=== PATIENT | female | born 1960 | race Caucasian/White ===

== ENCOUNTER 2020-05-05 09:42 | Emergency (ER) | payer MEDICAID ==
[~2020-05-05] VITALS: Ht 170.2 cm; Wt 61.0 kg
[2020-05-05 10:18] LABS: BASOPHILS # (AUTO) 0.1 X10'3 (0-0.2); BASOPHILS % (AUTO) 0.7 % (0-1); EOSINOPHILS # (AUTO) 0.1 X10'3 (0-0.9); EOSINOPHILS % (AUTO) 1.2 % (0-6); HEMATOCRIT 39.3 % (35.0-45.0); HEMOGLOBIN 13.2 g/dl (12.0-16.0); LYMPHOCYTES # (AUTO) 1.8 X10'3 (1.1-4.8); LYMPHOCYTES % (AUTO) 20.1 % (21-51); MEAN CORPUSCULAR HEMOGLOBIN 34.5 PG (27.0-31.0); MEAN CORPUSCULAR HGB CONC 33.7 g/dL (33.0-36.5); MEAN CORPUSCULAR VOLUME 102.5 FL (78-98); MEAN PLATELET VOLUME 7.5 FL (7.4-10.4); MONOCYTES # (AUTO) 0.5 X10'3 (0-0.9); MONOCYTES % (AUTO) 6.2 % (2-12); NEUTROPHILS # (AUTO) 6.3 X10'3 (1.8-7.7); NEUTROPHILS % (AUTO) 71.8 % (42-75); PLATELET COUNT 430 X10'3 (140-440); RED BLOOD COUNT 3.83 X10'6 (4.20-5.60); RED CELL DISTRIBUTION WIDTH 13.7 % (11.5-14.5); WHITE BLOOD COUNT 8.7 X10'3 (4.5-11.0)
[2020-05-05 10:26] LABS: ALANINE AMINOTRANSFERASE 18 U/L (12-78); ALBUMIN 3.5 G/DL (3.4-5.0); ALKALINE PHOSPHATASE 66 IU/L (46-116); ANION GAP 9 (8-16); ASPARTATE AMINO TRANSFERASE 13 U/L (10-37); BILIRUBIN,TOTAL 0.2 MG/DL (0.1-1.0); BLOOD UREA NITROGEN 23 MG/DL (7-18); BUN/CREATININE RATIO 23.2 (6.6-38.0); CALCIUM 9.1 MG/DL (8.5-10.1); CHLORIDE 109 MMOL/L (99-107); CREATININE 0.99 MG/DL (0.40-0.90); GLUCOSE 108 MG/DL (70-104); LIPASE 415 U/L (73-393); POTASSIUM 5.1 MMOL/L (3.5-5.1); SODIUM 143 MMOL/L (135-145); TOTAL CARBON DIOXIDE 25.3 MMOL/L (24-32); eGFR 57 ML/MIN
[2020-05-05] MEDS ORDERED: folic acid 1mg/0.2ml inj IV ONE (10:45)
[2020-05-05] MEDS ORDERED: thiamine 100mg/ml 2ml inj. IV ONE (10:45)
[2020-05-05] MEDS ORDERED: normal saline 1000ML IV soln IVB ONE (10:45)
[2020-05-05] MEDS ORDERED: ondansetron/PF 4mg/2ml inj IV ONE (10:45)
[2020-05-05] MEDS ORDERED: famotidine/PF 10 mg/ml inj IV ONE (10:45)
[2020-05-05] MEDS ORDERED: ketorolac trometh. 30mg/ml inj. IV ONE (10:45)
[2020-05-05] MEDS ORDERED: iohexol 300mg/ml 100ml inj. ONE (10:56)
[2020-05-05] MEDS ORDERED: NAPR-56 PO (11:53)
[2020-05-05] MEDS ORDERED: TRAM50TA2 PO (11:53)
[2020-05-05] MEDS ORDERED: PANT-47 PO (11:53)
[2020-05-05] MEDS ORDERED: ONDA4TAB6 PO (11:53)
[2020-05-05 11:59] LABS: CLARITY,URINE SLIGHTLY CLOUDY (Clear); COLOR,URINE YELLOW (Yellow); GLUCOSE, URINE NEGATIVE (Neg); KETONES,URINE NEGATIVE (Neg); LEUKOCYTE ESTERASE ,URINE NEGATIVE (Neg); NITRITES, URINE NEGATIVE (Neg); OCCULT BLOOD,URINE NEGATIVE (Neg); PH,URINE 5.5 (4.8-8.0); PROTEIN,URINE NEGATIVE (Neg); UROBILINOGEN,URINE 0.2 E.U/dL (0.2-1.0)
[2020-05-05 12:00] LABS: UA COLLECTION TYPE VOIDED
[2020-05-05 12:05] LABS: HYALINE CASTS 0-3 /LPF (NEGATIVE); MUCUS STRANDS FEW /LPF (Neg); SQUAMOUS EPITHELIAL CELL,UR FEW /LPF (FEW)
[2020-05-05 12:06] LABS: BACTERIA,URINE FEW /HPF (Neg); RBC,URINE 0-2 /HPF (0-2); WBC,URINE 0-4 /HPF (0-4)
[2020-05-05 13:13] VITALS: BP 145/78
== END 2020-05-05 13:08 | disposition home or self-care (01) ==
LOC: ER 09:42
DX: K85.90 Acute pancreatitis without necrosis or infection, unspecified (principal); F10.20 Alcohol dependence, uncomplicated; Z88.0 Allergy status to penicillin; Z79.899 Other long term (current) drug therapy; Y90.0 Blood alcohol level of less than 20 mg/100 ml
CPT/HCPCS: 36415; 71045; 74177; 80053; 81001; 83690; 84484; 85025; 93005; 96374; 96375; 99285; J1885; J2405; J3411; J3490; J7030; Q9967

== ENCOUNTER 2022-05-15 13:07 | Emergency (ER) | payer MEDICAID ==
[~2022-05-15] VITALS: Ht 170.2 cm; Wt 66.4 kg
[~2022-05-15 13:07] MED LIST: ONDA4TAB6 PO; PANT-47 PO
[2022-05-15 13:44] LABS: BASOPHILS % (AUTO) 0.1 % (0-1); EOSINOPHILS % (AUTO) 0 % (0-6); HEMATOCRIT 43.8 % (35.0-45.0); LYMPHOCYTES # (AUTO) 0.7 X10'3 (1.1-4.8); LYMPHOCYTES % (AUTO) 5.4 % (21-51); MEAN CORPUSCULAR HEMOGLOBIN 34.1 PG (27.0-31.0); MEAN CORPUSCULAR HGB CONC 34.2 g/dL (33.0-36.5); MEAN CORPUSCULAR VOLUME 99.7 FL (78-98); MEAN PLATELET VOLUME 8.2 FL (7.4-10.4); MONOCYTES # (AUTO) 0.4 X10'3 (0-0.9); NEUTROPHILS # (AUTO) 11.5 X10'3 (1.8-7.7); NEUTROPHILS % (AUTO) 91.5 % (42-75); PLATELET COUNT 365 X10'3 (140-440); RED BLOOD COUNT 4.39 X10'6 (4.20-5.60); RED CELL DISTRIBUTION WIDTH 14.2 % (11.5-14.5); WHITE BLOOD COUNT 12.5 X10'3 (4.5-11.0)
[2022-05-15 14:10] LABS: ALANINE AMINOTRANSFERASE 38 U/L (12-78); ALBUMIN 3.5 G/DL (3.4-5.0); ALBUMIN/GLOBULIN RATIO 0.8 (1.1-1.5); ALKALINE PHOSPHATASE 79 IU/L (46-116); ANION GAP 15 (8-16); ASPARTATE AMINO TRANSFERASE 21 U/L (10-37); BILIRUBIN,TOTAL 0.8 MG/DL (0.1-1.0); BLOOD UREA NITROGEN 25 MG/DL (7-18); BUN/CREATININE RATIO 20.8 (6.6-38.0); CALCIUM 9.1 MG/DL (8.5-10.1); CHLORIDE 98 MMOL/L (99-107); GLUCOSE 127 MG/DL (70-104); LIPASE < 50 U/L (73-393); POTASSIUM 3.8 MMOL/L (3.5-5.1); SODIUM 136 MMOL/L (135-145); TOTAL CARBON DIOXIDE 23.1 MMOL/L (24-32); TOTAL PROTEIN 8.1 G/DL (6.4-8.2); eGFR 45 ML/MIN
[2022-05-15 16:20] VITALS: BP 112/74
[2022-05-15] MEDS ORDERED: loperamide 2mg capsule PO ONE (16:35)
[2022-05-15] MEDS ORDERED: VANC125C5 PO (18:00)
[2022-05-15] MEDS ORDERED: VANC125C11 PO (18:04)
[2022-05-15] MEDS ORDERED: vancomycin 125mg/5ml ORAL solution 5ml UD oral syringe PO ONE (18:10)
== END 2022-05-15 19:02 | disposition home or self-care (01) ==
LOC: ER 13:09
DX: A04.71 Enterocolitis due to Clostridium difficile, recurrent (principal); Z88.0 Allergy status to penicillin
CPT/HCPCS: 36415; 74176; 80053; 83690; 84145; 85025; 99284

== ENCOUNTER 2022-05-20 06:04 | Inpatient (IN) | payer MEDICAID ==
[~2022-05-20] VITALS: Ht 170.2 cm; Wt 66.4 kg
[~2022-05-20 06:04] MED LIST changes: +VANC125C11 PO; +VANC125C5 PO
[2022-05-20] MEDS ORDERED: morphine 4 MG/ML inj SYRINge IV PRN (07:30)
[2022-05-20] MEDS ORDERED: ondansetron/PF 4mg/2ml inj IV ONE (07:30)
[2022-05-20] MEDS ORDERED: ketorolac trometh. 30mg/ml inj. IV ONE (08:00)
[2022-05-20 08:39] LABS: CLARITY,URINE CLOUDY (Clear); COLOR,URINE YELLOW (Yellow); GLUCOSE, URINE NEGATIVE (Neg); KETONES,URINE 15 mg/dl (Neg); LEUKOCYTE ESTERASE ,URINE NEGATIVE (Neg); NITRITES, URINE NEGATIVE (Neg); OCCULT BLOOD,URINE NEGATIVE (Neg); PROTEIN,URINE NEGATIVE (Neg); UROBILINOGEN,URINE 0.2 E.U/dL (0.2-1.0)
[2022-05-20 08:41] LABS: UA COLLECTION TYPE NON-SPECIFIED
[2022-05-20 08:44] LABS: MEAN CORPUSCULAR VOLUME 100.3 FL (78-98); MONOCYTES # (AUTO) 1.3 X10'3 (0-0.9); WHITE BLOOD COUNT 10.4 X10'3 (4.5-11.0)
[2022-05-20 08:46] LABS: BASOPHILS % (AUTO) 0.2 % (0-1); EOSINOPHILS % (AUTO) 0.5 % (0-6); HEMATOCRIT 38.2 % (35.0-45.0); HEMOGLOBIN 13.1 g/dl (12.0-16.0); LYMPHOCYTES # (AUTO) 1.1 X10'3 (1.1-4.8); LYMPHOCYTES % (AUTO) 10.4 % (21-51); MEAN CORPUSCULAR HEMOGLOBIN 34.4 PG (27.0-31.0); MEAN CORPUSCULAR HGB CONC 34.3 g/dL (33.0-36.5); MEAN PLATELET VOLUME 7.1 FL (7.4-10.4); MONOCYTES % (AUTO) 12.1 % (2-12); NEUTROPHILS % (AUTO) 76.8 % (42-75); PLATELET COUNT 640 X10'3 (140-440); RED CELL DISTRIBUTION WIDTH 14.5 % (11.5-14.5)
[2022-05-20 08:46] LABS: HYALINE CASTS 0-3 /LPF (NEGATIVE); MUCUS STRANDS FEW /LPF (Neg); SQUAMOUS EPITHELIAL CELL,UR MANY /LPF (FEW)
[2022-05-20 08:48] LABS: BACTERIA,URINE 2+ /HPF (Neg); CAL OXALATE CRYSTALS FEW /HPF (NEGATIVE); RBC,URINE 0-2 /HPF (0-2); WBC,URINE 0-4 /HPF (0-4)
[2022-05-20 09:13] LABS: ALANINE AMINOTRANSFERASE 52 U/L (12-78); ALBUMIN 2.7 G/DL (3.4-5.0); ALBUMIN/GLOBULIN RATIO 0.5 (1.1-1.5); ALKALINE PHOSPHATASE 127 IU/L (46-116); ANION GAP 11 (8-16); ASPARTATE AMINO TRANSFERASE 29 U/L (10-37); BILIRUBIN,TOTAL 0.7 MG/DL (0.1-1.0); BLOOD UREA NITROGEN 31 MG/DL (7-18); BUN/CREATININE RATIO 29.8 (6.6-38.0); CALCIUM 9.4 MG/DL (8.5-10.1); CHLORIDE 101 MMOL/L (99-107); CREATININE 1.04 MG/DL (0.40-0.90); GLUCOSE 108 MG/DL (70-104); LIPASE 98 U/L (73-393); POTASSIUM 3.7 MMOL/L (3.5-5.1); SODIUM 137 MMOL/L (135-145); TOTAL CARBON DIOXIDE 25.1 MMOL/L (24-32); TOTAL PROTEIN 7.7 G/DL (6.4-8.2); eGFR 54 ML/MIN
--- NOTE | 2022-05-20 10:18 | NUR ---
General surg team at [facility] to see patient.
[2022-05-20] MEDS: ciprofloxacin lact 400MG/200ML 200 ML IV SCH ×3 (10:28→20:13)
[2022-05-20] MEDS: metroNIDAZOLE-Flagyl 500mg/NS 100 ML IV SCH ×3 (10:29→17:37)
[2022-05-20] MEDS ORDERED: mag hydrox/Alum hydrox/simeth 30ml oral suspension PO PRN (11:00)
[2022-05-20] MEDS ORDERED: potassium CL 10mEq/100ml bag 100 ML IV PRN (11:00)
[2022-05-20] MEDS ORDERED: POTASSIUM BICARB 20meq eff tab 20 MEQ TABLET.EFF PO PRN ×2 (11:00)
[2022-05-20] MEDS ORDERED: magnesium hydroxide 30ml (MOM) UD suspension PO PRN (11:00)
[2022-05-20] MEDS ORDERED: magnesium Cl slow-release 64mg tablet PO PRN (11:00)
[2022-05-20] MEDS ORDERED: magnesium 2GM in 50ml NS 50 ML IV PRN (11:00)
[2022-05-20] MEDS ORDERED: morphine 2 MG/ML inj. syringe IV PRN (11:00)
[2022-05-20] MEDS ORDERED: magnesium 4gm in 100ml NS 100 ML IV PRN (11:00)
[2022-05-20 11:11] LABS: MAGNESIUM 1.8 MG/DL (1.5-2.4)
[2022-05-20] MEDS: normal saline 1000ml 1,000 ML IV SCH ×2 (11:27→21:04)
[2022-05-20] MEDS ORDERED: LISI10TA27 PO (12:19)
[2022-05-20] MEDS ORDERED: ASPI-1475 PO (12:19)
[2022-05-20] MEDS ORDERED: CHOL20003 PO (12:19)
[2022-05-20] MEDS ORDERED: NAPR-996 PO (12:20)
[2022-05-20] MEDS: K and/or MAG REPLACEMENT MC SCH (20:00)
[2022-05-20] MEDS: docusate sod 100mg capsule PO SCH (20:00)
[2022-05-20] MEDS: morphine 2 MG/ML inj. syringe IV PRN (20:13)
[2022-05-21] MEDS: metroNIDAZOLE-Flagyl 500mg/NS 100 ML IV SCH ×5 (00:30→23:44)
[2022-05-21 03:09] LABS: ALBUMIN 2.2 G/DL (3.4-5.0); ANION GAP 10 (8-16); BLOOD UREA NITROGEN 23 MG/DL (7-18); BUN/CREATININE RATIO 24.5 (6.6-38.0); CALCIUM 8.4 MG/DL (8.5-10.1); CHLORIDE 107 MMOL/L (99-107); CREATININE 0.94 MG/DL (0.40-0.90); GLUCOSE 97 MG/DL (70-104); MAGNESIUM 1.6 MG/DL (1.5-2.4); POTASSIUM 3.7 MMOL/L (3.5-5.1); SODIUM 139 MMOL/L (135-145); TOTAL CARBON DIOXIDE 21.9 MMOL/L (24-32); eGFR 60 ML/MIN
[2022-05-21 04:13] LABS: BASOPHILS % (AUTO) 0.4 % (0-1); EOSINOPHILS # (AUTO) 0.1 X10'3 (0-0.9); EOSINOPHILS % (AUTO) 0.8 % (0-6); HEMATOCRIT 34.9 % (35.0-45.0); HEMOGLOBIN 11.7 g/dl (12.0-16.0); LYMPHOCYTES % (AUTO) 10.8 % (21-51); MEAN CORPUSCULAR HEMOGLOBIN 33.8 PG (27.0-31.0); MEAN CORPUSCULAR HGB CONC 33.6 g/dL (33.0-36.5); MEAN CORPUSCULAR VOLUME 100.6 FL (78-98); MEAN PLATELET VOLUME 7.1 FL (7.4-10.4); MONOCYTES # (AUTO) 1.2 X10'3 (0-0.9); NEUTROPHILS # (AUTO) 7.2 X10'3 (1.8-7.7); PLATELET COUNT 561 X10'3 (140-440); RED BLOOD COUNT 3.46 X10'6 (4.20-5.60); RED CELL DISTRIBUTION WIDTH 14.2 % (11.5-14.5); WHITE BLOOD COUNT 9.5 X10'3 (4.5-11.0)
--- NOTE | 2022-05-21 06:20 | NUR ---
Patient in room ED 8. I have received report from mario mcelroy and had the opportunity to ask questions and assume patient care.
[2022-05-21 06:45] VITALS: BP 161/89
[2022-05-21] MEDS: K and/or MAG REPLACEMENT MC SCH ×2 (08:00→20:00)
[2022-05-21] MEDS: ciprofloxacin lact 400MG/200ML 200 ML IV SCH ×2 (08:20→19:43)
[2022-05-21] MEDS: morphine 2 MG/ML inj. syringe IV PRN ×4 (08:21→23:43)
[2022-05-21] MEDS: normal saline 1000ml 1,000 ML IV SCH ×2 (08:21→17:00)
[2022-05-21] MEDS: docusate sod 100mg capsule PO SCH ×2 (08:41→19:35)
[2022-05-21] MEDS: lisinopril 10 MG tablet PO SCH (08:42)
[2022-05-21] MEDS: aspirin 81mg, enteric-coated 1 TAB TABLET.DR PO SCH (08:42)
[2022-05-21] MEDS: cholecalciferol (vitamin D3) 1,000 unit (25mcg) tablet PO SCH (08:42)
[2022-05-21 10:00] VITALS: BP 166/91
[2022-05-21] MEDS: hydrALAZINE 20mg/ml inj. IV PRN ×2 (10:01→21:49)
[2022-05-21] MEDS: ondansetron/PF 4mg/2ml inj IV PRN (11:57)
[2022-05-21] MEDS: diatr meglu/diatrizoate 30ml oral sol.-(3 dose) bottle PO SCH ×3 (11:58→17:00)
--- NOTE | 2022-05-21 15:44 | NUR ---
promotional table spacer PAGER ID: [phone] MESSAGE: [email or web address] mcelroy [phone] re: Erick [email or web address]. Pt c/o severe abdominal pain, morphine ineffective.
[2022-05-21] MEDS ORDERED: morphine 2 MG/ML inj. syringe IV ONE (16:00)
[2022-05-21] MEDS ORDERED: iohexol 300mg/ml 100ml inj. ONE (16:58)
[2022-05-21 18:00] VITALS: BP 147/79
--- NOTE | 2022-05-21 18:22 | NUR ---
Problems reprioritized. Patient report given, questions answered & plan of care reviewed with tata mcelroy.
--- NOTE | 2022-05-21 18:24 | NUR ---
Patient in room ORTHO 4017. I have received report from LAMONT Jewell and had the opportunity to ask questions and assume patient care.
[2022-05-21 22:00] VITALS: BP 164/87
[2022-05-21 23:47] VITALS: BP 144/74
[2022-05-22] MEDS: normal saline 1000ml 1,000 ML IV SCH ×2 (03:10→15:44)
[2022-05-22] MEDS: morphine 2 MG/ML inj. syringe IV PRN ×4 (05:15→19:17)
[2022-05-22 06:00] VITALS: BP 141/73
--- NOTE | 2022-05-22 06:10 | NUR ---
Patient in room ORTHO 4017. I have received report from Lanny and had the opportunity to ask questions and assume patient care.
--- NOTE | 2022-05-22 06:22 | NUR ---
Problems reprioritized. Patient report given, questions answered & plan of care reviewed with LAMONT Salvador.
[2022-05-22 07:25] LABS: EOSINOPHILS % (AUTO) 0.2 % (0-6); HEMOGLOBIN 11.2 g/dl (12.0-16.0); MEAN CORPUSCULAR HGB CONC 33.9 g/dL (33.0-36.5); MONOCYTES # (AUTO) 1.3 X10'3 (0-0.9); NEUTROPHILS # (AUTO) 11.4 X10'3 (1.8-7.7); RED BLOOD COUNT 3.25 X10'6 (4.20-5.60)
[2022-05-22 07:28] LABS: BASOPHILS # (AUTO) 0.1 X10'3 (0-0.2); BASOPHILS % (AUTO) 0.5 % (0-1); HEMATOCRIT 32.9 % (35.0-45.0); LYMPHOCYTES % (AUTO) 6.9 % (21-51); MEAN CORPUSCULAR HEMOGLOBIN 34.3 PG (27.0-31.0); MEAN CORPUSCULAR VOLUME 101.1 FL (78-98); MEAN PLATELET VOLUME 7.3 FL (7.4-10.4); MONOCYTES % (AUTO) 9.5 % (2-12); NEUTROPHILS % (AUTO) 82.9 % (42-75); PLATELET COUNT 661 X10'3 (140-440); RED CELL DISTRIBUTION WIDTH 14.3 % (11.5-14.5); WHITE BLOOD COUNT 13.7 X10'3 (4.5-11.0)
[2022-05-22 07:46] LABS: ALBUMIN 2.2 G/DL (3.4-5.0); ANION GAP 14 (8-16); BLOOD UREA NITROGEN 12 MG/DL (7-18); BUN/CREATININE RATIO 13.5 (6.6-38.0); CALCIUM 8.2 MG/DL (8.5-10.1); CHLORIDE 104 MMOL/L (99-107); CREATININE 0.89 MG/DL (0.40-0.90); GLUCOSE 99 MG/DL (70-104); MAGNESIUM 1.5 MG/DL (1.5-2.4); POTASSIUM 3.7 MMOL/L (3.5-5.1); SODIUM 137 MMOL/L (135-145); TOTAL CARBON DIOXIDE 19.5 MMOL/L (24-32); eGFR 64 ML/MIN
[2022-05-22] MEDS: aspirin 81mg, enteric-coated 1 TAB TABLET.DR PO SCH (08:00)
[2022-05-22] MEDS: K and/or MAG REPLACEMENT MC SCH ×2 (08:00→20:00)
[2022-05-22] MEDS: docusate sod 100mg capsule PO SCH ×2 (08:00→20:00)
[2022-05-22 08:25] VITALS: BP 152/77
[2022-05-22] MEDS: cholecalciferol (vitamin D3) 1,000 unit (25mcg) tablet PO SCH (08:26)
[2022-05-22] MEDS: metroNIDAZOLE-Flagyl 500mg/NS 100 ML IV SCH ×3 (08:26→23:59)
[2022-05-22] MEDS: lisinopril 10 MG tablet PO SCH (08:26)
[2022-05-22 10:00] VITALS: BP 167/88
[2022-05-22] MEDS: ondansetron/PF 4mg/2ml inj IV PRN (10:14)
[2022-05-22] MEDS: ciprofloxacin lact 400MG/200ML 200 ML IV SCH ×2 (10:14→20:25)
[2022-05-22 10:33] LABS: C DIFF SPECIMEN=DIARRHEA? ACCEPTABLE; C DIFFICILE TOXINS A&B NEGATIVE (Neg)
[2022-05-22] MEDS: vancomycin 125mg/5ml ORAL solution 5ml UD oral syringe PO SCH ×2 (14:41→21:35)
[2022-05-22] MEDS: hydrALAZINE 20mg/ml inj. IV PRN (17:12)
[2022-05-22 18:00] VITALS: BP 175/93
--- NOTE | 2022-05-22 18:12 | NUR ---
Problems reprioritized. Patient report given, questions answered & plan of care reviewed with Lanny.
--- NOTE | 2022-05-22 18:39 | NUR ---
Patient in room ORTHO 4017. I have received report from LAMONT Salvador and had the opportunity to ask questions and assume patient care.
[2022-05-22 19:00] VITALS: BP 145/75
[2022-05-22 22:00] VITALS: BP 144/81
[2022-05-23] MEDS: normal saline 1000ml 1,000 ML IV SCH ×3 (00:03→20:35)
[2022-05-23] MEDS: morphine 2 MG/ML inj. syringe IV PRN ×4 (00:04→20:34)
[2022-05-23] MEDS: vancomycin 125mg/5ml ORAL solution 5ml UD oral syringe PO SCH ×4 (02:09→20:34)
[2022-05-23 06:02] LABS: BASOPHILS # (AUTO) 0.1 X10'3 (0-0.2); BASOPHILS % (AUTO) 0.4 % (0-1); HEMOGLOBIN 11.1 g/dl (12.0-16.0); MEAN PLATELET VOLUME 7.3 FL (7.4-10.4); MONOCYTES # (AUTO) 1.2 X10'3 (0-0.9); RED CELL DISTRIBUTION WIDTH 14.5 % (11.5-14.5)
[2022-05-23 06:05] LABS: EOSINOPHILS % (AUTO) 0.2 % (0-6); HEMATOCRIT 32.4 % (35.0-45.0); LYMPHOCYTES # (AUTO) 1.1 X10'3 (1.1-4.8); LYMPHOCYTES % (AUTO) 6.9 % (21-51); MEAN CORPUSCULAR HEMOGLOBIN 34.6 PG (27.0-31.0); MEAN CORPUSCULAR HGB CONC 34.2 g/dL (33.0-36.5); MONOCYTES % (AUTO) 7.5 % (2-12); NEUTROPHILS # (AUTO) 13.6 X10'3 (1.8-7.7); PLATELET COUNT 699 X10'3 (140-440); RED BLOOD COUNT 3.21 X10'6 (4.20-5.60)
[2022-05-23 06:34] VITALS: BP 160/91
--- NOTE | 2022-05-23 06:35 | NUR ---
Patient in room ORTHO 4017. I have received report from Lanny and had the opportunity to ask questions and assume patient care.
--- NOTE | 2022-05-23 06:36 | NUR ---
Problems reprioritized. Patient report given, questions answered & plan of care reviewed with LAMONT Salvador.
[2022-05-23 06:43] LABS: ALBUMIN 2.1 G/DL (3.4-5.0); ANION GAP 13 (8-16); BLOOD UREA NITROGEN 8 MG/DL (7-18); BUN/CREATININE RATIO 9.4 (6.6-38.0); CALCIUM 8.4 MG/DL (8.5-10.1); CHLORIDE 104 MMOL/L (99-107); CREATININE 0.85 MG/DL (0.40-0.90); GLUCOSE 110 MG/DL (70-104); MAGNESIUM 1.5 MG/DL (1.5-2.4); POTASSIUM 3.5 MMOL/L (3.5-5.1); SODIUM 137 MMOL/L (135-145); TOTAL CARBON DIOXIDE 20.5 MMOL/L (24-32); eGFR 68 ML/MIN
[2022-05-23] MEDS: docusate sod 100mg capsule PO SCH ×2 (08:00→20:00)
[2022-05-23] MEDS: K and/or MAG REPLACEMENT MC SCH ×2 (08:00→20:00)
[2022-05-23 10:00] VITALS: BP 165/96
[2022-05-23] MEDS: metroNIDAZOLE-Flagyl 500mg/NS 100 ML IV SCH ×2 (10:36→16:47)
[2022-05-23] MEDS: cholecalciferol (vitamin D3) 1,000 unit (25mcg) tablet PO SCH (10:37)
[2022-05-23] MEDS: aspirin 81mg, enteric-coated 1 TAB TABLET.DR PO SCH (10:37)
[2022-05-23] MEDS: lisinopril 10 MG tablet PO SCH (10:37)
[2022-05-23] MEDS: ciprofloxacin lact 400MG/200ML 200 ML IV SCH ×2 (11:40→20:34)
[2022-05-23 14:00] VITALS: BP 168/94
[2022-05-23] MEDS: ondansetron/PF 4mg/2ml inj IV PRN (14:36)
[2022-05-23 18:11] VITALS: BP 154/90
--- NOTE | 2022-05-23 18:41 | NUR ---
Problems reprioritized. Patient report given, questions answered & plan of care reviewed with Theresa.
[2022-05-24] VITALS (17 sets, daily range): BP systolic 154–175; BP diastolic 81–100
[2022-05-24] MEDS: metroNIDAZOLE-Flagyl 500mg/NS 100 ML IV SCH ×4 (00:22→23:32)
[2022-05-24] MEDS: vancomycin 125mg/5ml ORAL solution 5ml UD oral syringe PO SCH ×4 (02:00→20:00)
[2022-05-24] MEDS: normal saline 1000ml 1,000 ML IV SCH ×2 (05:00→15:40)
[2022-05-24 05:43] LABS: BASOPHILS % (AUTO) 0.2 % (0-1); LYMPHOCYTES # (AUTO) 0.8 X10'3 (1.1-4.8); RED BLOOD COUNT 3.23 X10'6 (4.20-5.60)
[2022-05-24 05:45] LABS: EOSINOPHILS % (AUTO) 0.1 % (0-6); HEMATOCRIT 32.5 % (35.0-45.0); LYMPHOCYTES % (AUTO) 4.4 % (21-51); MEAN CORPUSCULAR HGB CONC 33.8 g/dL (33.0-36.5); MEAN CORPUSCULAR VOLUME 100.6 FL (78-98); MEAN PLATELET VOLUME 7.2 FL (7.4-10.4); MONOCYTES % (AUTO) 5.8 % (2-12); NEUTROPHILS # (AUTO) 15.5 X10'3 (1.8-7.7); NEUTROPHILS % (AUTO) 89.5 % (42-75); PLATELET COUNT 695 X10'3 (140-440); RED CELL DISTRIBUTION WIDTH 14.8 % (11.5-14.5); WHITE BLOOD COUNT 17.3 X10'3 (4.5-11.0)
[2022-05-24 05:55] LABS: ALBUMIN 1.9 G/DL (3.4-5.0); ANION GAP 9 (8-16); BLOOD UREA NITROGEN 6 MG/DL (7-18); BUN/CREATININE RATIO 7.3 (6.6-38.0); CALCIUM 8.4 MG/DL (8.5-10.1); CHLORIDE 103 MMOL/L (99-107); CREATININE 0.82 MG/DL (0.40-0.90); GLUCOSE 116 MG/DL (70-104); MAGNESIUM 1.2 MG/DL (1.5-2.4); POTASSIUM 3.4 MMOL/L (3.5-5.1); SODIUM 136 MMOL/L (135-145); TOTAL CARBON DIOXIDE 23.8 MMOL/L (24-32); eGFR 70 ML/MIN
[2022-05-24] MEDS: K and/or MAG REPLACEMENT MC SCH ×3 (08:00→20:00)
[2022-05-24] MEDS ORDERED: diatrozoate meglu/diatrozoate sod (37% iodine) 120ML oral solution PO ONE ×2 (08:05→21:00)
[2022-05-24] MEDS ORDERED: diatr meglu/diatrizoate 30ml oral sol.-(3 dose) bottle PO ONE (08:40)
[2022-05-24] MEDS: lisinopril 10 MG tablet PO SCH (08:49)
[2022-05-24] MEDS ORDERED: fentaNYL/PF 50MCG/1 ML 2ML syringe ONE (10:00)
[2022-05-24] MEDS ORDERED: midazolam 1 mg/ML 2ml injection ONE (10:00)
[2022-05-24] MEDS ORDERED: LIDOcaine 1%/PF 5ML 10 MG/ML VIAL ONE (10:01)
--- NOTE | 2022-05-24 10:21 | NUR ---
off the floor for abd scan
[2022-05-24] MEDS: docusate sod 100mg capsule PO SCH ×2 (13:31→20:00)
[2022-05-24] MEDS: ciprofloxacin lact 400MG/200ML 200 ML IV SCH ×2 (13:34→20:00)
[2022-05-24] MEDS: aspirin 81mg, enteric-coated 1 TAB TABLET.DR PO SCH (13:42)
[2022-05-24] MEDS: cholecalciferol (vitamin D3) 1,000 unit (25mcg) tablet PO SCH (13:42)
--- NOTE | 2022-05-24 15:46 | NUR ---
Canceled C Diff isolation per Naveen Kirkpatrick
--- NOTE | 2022-05-24 16:05 | NUR ---
MESSAGE: [id number] Fernandes somehow pulled her abd drain. PURULENT mendez drainage. [id number] KIANNA
[2022-05-24] MEDS ORDERED: magnesium Cl slow-release 64mg tablet PO PRN (17:45)
[2022-05-24] MEDS ORDERED: POTASSIUM BICARB 20meq eff tab 20 MEQ TABLET.EFF PO PRN (17:45)
[2022-05-24] MEDS ORDERED: magnesium 2GM in 50ml NS 50 ML IV PRN (17:45)
[2022-05-24] MEDS ORDERED: magnesium 4gm in 100ml NS 100 ML IV PRN (17:45)
[2022-05-24] MEDS ORDERED: potassium CL 10mEq/100ml bag 100 ML IV PRN (17:45)
--- NOTE | 2022-05-24 18:20 | NUR ---
Patient in room ORTHO 4006. I have received report from Linda MIGUEL and had the opportunity to ask questions and assume patient care. Addendum: 05/24/22 at 1844 by Pamela Penn RN Amended: Links added.
--- NOTE | 2022-05-24 18:24 | NUR ---
report to Pamela MIGUEL
[2022-05-24 19:55] LABS: MAGNESIUM 1.2 MG/DL (1.5-2.4); POTASSIUM 3.4 MMOL/L (3.5-5.1)
[2022-05-24] MEDS: POTASSIUM BICARB 20meq eff tab 20 MEQ TABLET.EFF PO PRN (21:25)
[2022-05-25] MEDS ORDERED: HEPARIN SOD,PORK IN 0.45% NACL 250 ML IV SCH
[2022-05-25] MEDS ORDERED: heparin 10,000 units/1 ML INJ IV ONE
[2022-05-25] MEDS ORDERED: heparin 10,000 units/1 ML INJ IV PRN
[2022-05-25] MEDS: normal saline 1000ml 1,000 ML IV SCH ×3 (01:00→21:54)
[2022-05-25] MEDS: POTASSIUM BICARB 20meq eff tab 20 MEQ TABLET.EFF PO PRN (01:26)
[2022-05-25] MEDS: vancomycin 125mg/5ml ORAL solution 5ml UD oral syringe PO SCH ×4 (01:33→20:00)
[2022-05-25 06:00] VITALS: BP 156/87
--- NOTE | 2022-05-25 06:00 | NUR ---
Problems reprioritized. Patient report given, questions answered & plan of care reviewed with Linda MIGUEL. Addendum: 05/25/22 at 0636 by Pamela Penn RN Amended: Links added.
[2022-05-25 06:47] LABS: HEMOGLOBIN 11.2 g/dl (12.0-16.0); LYMPHOCYTES # (AUTO) 0.7 X10'3 (1.1-4.8); MONOCYTES # (AUTO) 0.8 X10'3 (0-0.9); RED CELL DISTRIBUTION WIDTH 14.3 % (11.5-14.5)
[2022-05-25 06:49] LABS: BASOPHILS % (AUTO) 0.3 % (0-1); EOSINOPHILS % (AUTO) 0.5 % (0-6); HEMATOCRIT 32.5 % (35.0-45.0); LYMPHOCYTES % (AUTO) 6.5 % (21-51); MEAN CORPUSCULAR HEMOGLOBIN 34.6 PG (27.0-31.0); MEAN CORPUSCULAR HGB CONC 34.5 g/dL (33.0-36.5); MEAN CORPUSCULAR VOLUME 100.3 FL (78-98); NEUTROPHILS # (AUTO) 8.8 X10'3 (1.8-7.7); NEUTROPHILS % (AUTO) 84.7 % (42-75); PLATELET COUNT 663 X10'3 (140-440); RED BLOOD COUNT 3.24 X10'6 (4.20-5.60); WHITE BLOOD COUNT 10.4 X10'3 (4.5-11.0)
[2022-05-25 07:04] LABS: ANION GAP 13 (8-16); BLOOD UREA NITROGEN 5 MG/DL (7-18); CHLORIDE 103 MMOL/L (99-107); CREATININE 0.71 MG/DL (0.40-0.90); GLUCOSE 101 MG/DL (70-104); MAGNESIUM 2.7 MG/DL (1.5-2.4); POTASSIUM 3.4 MMOL/L (3.5-5.1); SODIUM 137 MMOL/L (135-145); TOTAL CARBON DIOXIDE 21.5 MMOL/L (24-32); eGFR 83 ML/MIN
[2022-05-25] MEDS: docusate sod 100mg capsule PO SCH ×2 (07:13→20:00)
[2022-05-25] MEDS: K and/or MAG REPLACEMENT MC SCH ×4 (08:00→20:00)
[2022-05-25] MEDS: lisinopril 10 MG tablet PO SCH (08:26)
[2022-05-25] MEDS: metroNIDAZOLE-Flagyl 500mg/NS 100 ML IV SCH ×3 (08:26→22:55)
--- NOTE | 2022-05-25 09:15 | NUR ---
Initial: Pt admit for partial bowel obstruction versus enterocolitis. Repeat CT of abdomen and pelvis shows a pelvic abscess and a drain was placed 05/24 by IR per MD notes. Pt initially NPO though advanced to a clear liquid diet 05/22, however pt documented to be refusing all meals. Per EMR pt with diarrhea and abdominal pain with 4 BMs on 05/24. IF unable to advance diet pt would benefit from nutrition support to meet estimated nutrient needs as today is day five with insufficient nutrient intake. Will continue to follow closely. Recommendations: 1) Advance to low fiber diet as medically indicated 2) Consider nutrition support if unable to advance PO diet 3) Bowel care per physician 4) Scaled weight this admit; subsequent weekly scaled weights Addendum: 05/25/22 at [address] Amended: Links added.
[2022-05-25] MEDS: ciprofloxacin lact 400MG/200ML 200 ML IV SCH ×2 (09:38→21:46)
--- NOTE | 2022-05-25 11:20 | NUR ---
Call to IR states there will not be a pocket to place drain into. WBC normal, afebrile. DR may order CT if condition worsens.
[2022-05-25] MEDS: cholecalciferol (vitamin D3) 1,000 unit (25mcg) tablet PO SCH (13:07)
[2022-05-25] MEDS: aspirin 81mg, enteric-coated 1 TAB TABLET.DR PO SCH (13:07)
[2022-05-25 18:00] VITALS: BP 172/97
--- NOTE | 2022-05-25 18:00 | NUR ---
Patient in room ORTHO 4017. I have received report from Linda MIGUEL and had the opportunity to ask questions and assume patient care.
--- NOTE | 2022-05-25 18:50 | NUR ---
Patient in room ORTHO 4017. I have received report from Linda MIGUEL and had the opportunity to ask questions and assume patient care. Addendum: 05/25/22 at 1908 by Pamela Penn RN Amended: Links added.
--- NOTE | 2022-05-25 20:21 | NUR ---
pt. awake A & O at this time. Pt. upset regarding the procedure that never took place during the day- pt. 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 "Reassured the pt. appears a bit calmer. Call light within reach and Addendum: 05/25/22 at 2027 by Pamela Penn RN Amended: Links added.
[2022-05-25] MEDS: acetaminophen 325mg tablet PO PRN (20:31)
[2022-05-26] MEDS: vancomycin 125mg/5ml ORAL solution 5ml UD oral syringe PO SCH ×3 (01:20→14:00)
--- NOTE | 2022-05-26 05:00 | NUR ---
Pt. slept well- had c/o pain x 1 medicated effective. No n/v this time. Call light in place and bed in low position. Addendum: 05/26/22 at 0648 by Pamela Penn RN Amended: Links added.
[2022-05-26 06:00] VITALS: BP 179/100
--- NOTE | 2022-05-26 06:20 | NUR ---
Problems reprioritized. Patient report given, questions answered & plan of care reviewed with Linda MIGUEL. Addendum: 05/26/22 at 0644 by Pamela Penn RN Amended: Links added.
[2022-05-26] MEDS: normal saline 1000ml 1,000 ML IV SCH (07:00)
[2022-05-26 07:02] LABS: MAGNESIUM 1.6 MG/DL (1.5-2.4); POTASSIUM 3.2 MMOL/L (3.5-5.1)
[2022-05-26] MEDS: acetaminophen 325mg tablet PO PRN (07:27)
[2022-05-26] MEDS: cholecalciferol (vitamin D3) 1,000 unit (25mcg) tablet PO SCH (07:27)
[2022-05-26] MEDS: aspirin 81mg, enteric-coated 1 TAB TABLET.DR PO SCH (07:27)
[2022-05-26] MEDS: lisinopril 10 MG tablet PO SCH (07:27)
[2022-05-26] MEDS: metroNIDAZOLE-Flagyl 500mg/NS 100 ML IV SCH (07:28)
[2022-05-26] MEDS: docusate sod 100mg capsule PO SCH (07:28)
[2022-05-26 07:51] LABS: ANION GAP 13 (8-16); BLOOD UREA NITROGEN 4 MG/DL (7-18); BUN/CREATININE RATIO 5.3 (6.6-38.0); CALCIUM 7.7 MG/DL (8.5-10.1); CHLORIDE 104 MMOL/L (99-107); CREATININE 0.75 MG/DL (0.40-0.90); GLUCOSE 96 MG/DL (70-104); SODIUM 139 MMOL/L (135-145); eGFR 78 ML/MIN
[2022-05-26 07:55] LABS: EOSINOPHILS % (AUTO) 0.6 % (0-6); HEMOGLOBIN 11.4 g/dl (12.0-16.0); LYMPHOCYTES # (AUTO) 0.8 X10'3 (1.1-4.8); MONOCYTES # (AUTO) 0.8 X10'3 (0-0.9)
[2022-05-26 07:58] LABS: BASOPHILS % (AUTO) 0.4 % (0-1); LYMPHOCYTES % (AUTO) 9.1 % (21-51); MEAN CORPUSCULAR HEMOGLOBIN 34.1 PG (27.0-31.0); MEAN CORPUSCULAR HGB CONC 34.4 g/dL (33.0-36.5); MEAN CORPUSCULAR VOLUME 99.1 FL (78-98); MEAN PLATELET VOLUME 7.2 FL (7.4-10.4); MONOCYTES % (AUTO) 9.7 % (2-12); NEUTROPHILS # (AUTO) 6.7 X10'3 (1.8-7.7); NEUTROPHILS % (AUTO) 80.2 % (42-75); PLATELET COUNT 693 X10'3 (140-440); RED BLOOD COUNT 3.33 X10'6 (4.20-5.60); RED CELL DISTRIBUTION WIDTH 14.4 % (11.5-14.5); WHITE BLOOD COUNT 8.4 X10'3 (4.5-11.0)
[2022-05-26] MEDS: K and/or MAG REPLACEMENT MC SCH ×2 (08:00)
[2022-05-26] MEDS: ciprofloxacin lact 400MG/200ML 200 ML IV SCH (09:12)
[2022-05-26] MEDS: POTASSIUM BICARB 20meq eff tab 20 MEQ TABLET.EFF PO PRN ×2 (09:14→15:49)
[2022-05-26 10:00] VITALS: BP 155/92
--- NOTE | 2022-05-26 15:45 | NUR ---
PAGER ID: [phone] MESSAGE: [id number] NIKHIL waiting for abx order to dc pt home KIANNA [phone]
[2022-05-26] MEDS ORDERED: METR-159 PO (15:53)
[2022-05-26] MEDS ORDERED: CIPR-202 PO (15:53)
[2022-05-26] MEDS ORDERED: metroNIDAZOLE 500mg tablet PO SCH (21:00)
[2022-05-26] MEDS ORDERED: ciprofloxacin 250mg tablet PO SCH (22:00)
== END 2022-05-26 16:40 | disposition home or self-care (01) | DRG 531 ==
LOC: ER 06:04 → ED HOLD 11:00 → ORTHO 4S 05-21 06:40
PROVIDERS: ADMIT Family Medicine; ATTEND Family Medicine
PROC: BW211ZZ Computerized Tomography (CT Scan) of Abdomen and Pelvis using Low Osmolar Contrast (ICD-10-PCS; 2022-05-21)
PROC: 0W9J30Z Drainage of Pelvic Cavity with Drainage Device, Percutaneous Approach (ICD-10-PCS; principal; 2022-05-24)
DX: N73.9 Female pelvic inflammatory disease, unspecified (principal); K65.1 Peritoneal abscess; K56.609 Unspecified intestinal obstruction, unspecified as to partial versus complete obstruction; D75.839 Thrombocytosis, unspecified; I10 Essential (primary) hypertension; Z88.0 Allergy status to penicillin; Z79.899 Other long term (current) drug therapy
CPT/HCPCS: 36415; 49406; 74176; 74177; 80048; 80053; 81001; 83690; 83735; 84132; 84484; 85025; 87070; 87081; 87324; 87449; 93005; 96365; 96375; 99152; 99153; 99285; A4421; A6258; A6449; C1729; C1769; G0378; J0360; J0744; J1885; J2250; J2270; J2405; J3010; J3475; J3490; J7030; Q9963; Q9967

== ENCOUNTER 2022-06-29 06:58 | Inpatient (IN) | payer MEDICAID ==
[~2022-06-29] VITALS: Ht 170.2 cm; Wt 66.4 kg
[~2022-06-29 06:58] MED LIST changes: +ASPI-1475 PO; +CHOL20003 PO; +LISI10TA27 PO; +NAPR-996 PO; -ONDA4TAB6 PO; -PANT-47 PO; -VANC125C11 PO; -VANC125C5 PO
[2022-06-29] MEDS ORDERED: morphine 4 MG/ML inj SYRINge IV ONE (07:40)
[2022-06-29 07:50] LABS: CLARITY,URINE SLIGHTLY CLOUDY (Clear); COLOR,URINE YELLOW (Yellow); GLUCOSE, URINE NEGATIVE (Neg); KETONES,URINE NEGATIVE (Neg); LEUKOCYTE ESTERASE ,URINE SMALL (Neg); NITRITES, URINE NEGATIVE (Neg); OCCULT BLOOD,URINE NEGATIVE (Neg); PROTEIN,URINE NEGATIVE (Neg); UROBILINOGEN,URINE 0.2 E.U/dL (0.2-1.0)
[2022-06-29 07:51] LABS: BASOPHILS # (AUTO) 0.1 X10'3 (0-0.2); BASOPHILS % (AUTO) 1.2 % (0-1); EOSINOPHILS # (AUTO) 0.1 X10'3 (0-0.9); EOSINOPHILS % (AUTO) 1.7 % (0-6); HEMATOCRIT 40.4 % (35.0-45.0); HEMOGLOBIN 13.8 g/dl (12.0-16.0); LYMPHOCYTES # (AUTO) 1.6 X10'3 (1.1-4.8); LYMPHOCYTES % (AUTO) 28.7 % (21-51); MEAN CORPUSCULAR HEMOGLOBIN 33.6 PG (27.0-31.0); MEAN CORPUSCULAR HGB CONC 34.2 g/dL (33.0-36.5); MEAN CORPUSCULAR VOLUME 98.1 FL (78-98); MEAN PLATELET VOLUME 7.8 FL (7.4-10.4); MONOCYTES # (AUTO) 0.5 X10'3 (0-0.9); MONOCYTES % (AUTO) 8.9 % (2-12); NEUTROPHILS # (AUTO) 3.2 X10'3 (1.8-7.7); NEUTROPHILS % (AUTO) 59.5 % (42-75); PLATELET COUNT 445 X10'3 (140-440); RED BLOOD COUNT 4.12 X10'6 (4.20-5.60); WHITE BLOOD COUNT 5.4 X10'3 (4.5-11.0)
[2022-06-29 07:53] LABS: ALANINE AMINOTRANSFERASE 30 U/L (12-78); ALBUMIN 3.9 G/DL (3.4-5.0); ALBUMIN/GLOBULIN RATIO 0.9 (1.1-1.5); ALKALINE PHOSPHATASE 80 IU/L (46-116); ANION GAP 10 (8-16); ASPARTATE AMINO TRANSFERASE 22 U/L (10-37); BILIRUBIN,TOTAL 0.7 MG/DL (0.1-1.0); BLOOD UREA NITROGEN 10 MG/DL (7-18); BUN/CREATININE RATIO 11.6 (6.6-38.0); CALCIUM 9.1 MG/DL (8.5-10.1); CHLORIDE 103 MMOL/L (99-107); CREATININE 0.86 MG/DL (0.40-0.90); GLUCOSE 124 MG/DL (70-104); LIPASE 88 U/L (73-393); POTASSIUM 3.9 MMOL/L (3.5-5.1); SODIUM 140 MMOL/L (135-145); TOTAL CARBON DIOXIDE 27.1 MMOL/L (24-32); TOTAL PROTEIN 8.2 G/DL (6.4-8.2); eGFR 67 ML/MIN
[2022-06-29 07:56] LABS: UA COLLECTION TYPE CLN CATCH MIDSTREAM
[2022-06-29 08:00] LABS: URINE HCG NEGATIVE (NEG)
[2022-06-29 08:04] LABS: SQUAMOUS EPITHELIAL CELL,UR MANY /LPF (FEW)
[2022-06-29 08:06] LABS: BACTERIA,URINE 1+ /HPF (Neg); RBC,URINE 0-2 /HPF (0-2); TRANSITIONAL EPI CELLS,URINE FEW /HPF
--- NOTE | 2022-06-29 08:24 | NUR ---
BACK FROM CT AT THIS TIME.
[2022-06-29] MEDS ORDERED: piperacillin/tazo 3.375gm/50ml 50 ML IV ONE (10:40)
[2022-06-29] MEDS: diatr meglu/diatrizoate 30ml oral sol.-(3 dose) bottle PO SCH ×3 (11:02→15:07)
--- NOTE | 2022-06-29 15:31 | NUR ---
CALL FROM [facility], STATED HEEL COMPRESSOR FROM [facility] WELL SECONDARY MD STATED PAT ABSCESS IS NOT PELVIC AND WOULD NEED GENERAL SURGEON CONSULTATION. DR SORENSON MADE AWARE, MARIYA COLLINS MADE AWARE TO [facility] HOSPITALIST.
[2022-06-29] MEDS ORDERED: magnesium hydroxide 30ml (MOM) UD suspension PO PRN (16:10)
[2022-06-29] MEDS ORDERED: naproxen 500mg tablet PO PRN (16:10)
[2022-06-29] MEDS ORDERED: acetaminophen 325mg tablet PO PRN ×2 (16:10)
[2022-06-29] MEDS ORDERED: mag hydrox/Alum hydrox/simeth 30ml oral suspension PO PRN (16:10)
[2022-06-29] MEDS ORDERED: morphine 2 MG/ML inj. syringe IV PRN (16:10)
[2022-06-29] MEDS: ondansetron/PF 4mg/2ml inj IV PRN (17:29)
[2022-06-29] MEDS: morphine 2 MG/ML inj. syringe IV PRN (17:29)
[2022-06-29] MEDS: docusate sod 100mg capsule PO SCH (20:00)
[2022-06-29] MEDS: HYDROcodone/acetaminophen 10/325mg tab PO PRN (21:02)
[2022-06-30] MEDS: morphine 2 MG/ML inj. syringe IV PRN (01:36)
[2022-06-30] MEDS: metroNIDAZOLE-Flagyl 500mg/NS 100 ML IV SCH ×3 (01:37→17:35)
[2022-06-30 03:20] VITALS: BP 154/87
[2022-06-30] MEDS: HYDROcodone/acetaminophen 10/325mg tab PO PRN ×3 (05:48→17:46)
[2022-06-30 06:00] VITALS: BP 139/82
[2022-06-30 06:05] LABS: BASOPHILS % (AUTO) 0.3 % (0-1); EOSINOPHILS # (AUTO) 0.1 X10'3 (0-0.9); HEMATOCRIT 37.6 % (35.0-45.0); HEMOGLOBIN 12.6 g/dl (12.0-16.0); LYMPHOCYTES # (AUTO) 0.9 X10'3 (1.1-4.8); LYMPHOCYTES % (AUTO) 14.8 % (21-51); MEAN CORPUSCULAR HEMOGLOBIN 33.3 PG (27.0-31.0); MEAN CORPUSCULAR HGB CONC 33.5 g/dL (33.0-36.5); MEAN CORPUSCULAR VOLUME 99.3 FL (78-98); MEAN PLATELET VOLUME 7.6 FL (7.4-10.4); MONOCYTES # (AUTO) 0.5 X10'3 (0-0.9); MONOCYTES % (AUTO) 7.6 % (2-12); NEUTROPHILS # (AUTO) 4.8 X10'3 (1.8-7.7); NEUTROPHILS % (AUTO) 76.3 % (42-75); PLATELET COUNT 372 X10'3 (140-440); RED BLOOD COUNT 3.78 X10'6 (4.20-5.60); RED CELL DISTRIBUTION WIDTH 15.2 % (11.5-14.5); WHITE BLOOD COUNT 6.3 X10'3 (4.5-11.0)
[2022-06-30 06:14] LABS: ALBUMIN 3.3 G/DL (3.4-5.0); ANION GAP 11 (8-16); BLOOD UREA NITROGEN 8 MG/DL (7-18); CALCIUM 8.9 MG/DL (8.5-10.1); CHLORIDE 104 MMOL/L (99-107); CREATININE 0.73 MG/DL (0.40-0.90); GLUCOSE 108 MG/DL (70-104); POTASSIUM 4.1 MMOL/L (3.5-5.1); SODIUM 142 MMOL/L (135-145); TOTAL CARBON DIOXIDE 27.4 MMOL/L (24-32); eGFR 81 ML/MIN
--- NOTE | 2022-06-30 06:58 | NUR ---
0257 Report given to this RN from LAMONT Falk. Questions answered. 0305 Pt arrived via wheelchair and in no acute distress. Pt steady on her feet. Pt had was water to drink since admission. Pain med given x1 dose. 0600 Report given to oncoming RNWatson. Questions answered. Pt in no acute distress at time of handoff.
[2022-06-30] MEDS: docusate sod 100mg capsule PO SCH ×2 (08:00→20:00)
[2022-06-30] MEDS: aspirin 81mg, enteric-coated 1 TAB TABLET.DR PO SCH (08:50)
[2022-06-30] MEDS: cholecalciferol (vitamin D3) 1,000 unit (25mcg) tablet PO SCH (08:50)
[2022-06-30] MEDS: lisinopril 10 MG tablet PO SCH (08:51)
[2022-06-30] MEDS: CefTRIAXone/D5W-Rocephin 1gm 50 ML IV SCH (08:51)
[2022-06-30 11:00] VITALS: BP 132/81
[2022-06-30 18:00] VITALS: BP 147/87
[2022-06-30 23:00] VITALS: BP 150/80
[2022-07-01] MEDS: HYDROcodone/acetaminophen 10/325mg tab PO PRN (00:08)
[2022-07-01] MEDS: metroNIDAZOLE-Flagyl 500mg/NS 100 ML IV SCH ×3 (00:08→16:55)
[2022-07-01 02:00] VITALS: BP 148/83
[2022-07-01] MEDS: HYDROcodone/acetaminophen 5mg/325mg tablet PO PRN ×3 (05:28→18:28)
[2022-07-01 06:00] VITALS: BP 142/80
--- NOTE | 2022-07-01 06:07 | NUR ---
1800 Report given to this RN from LAMONT Chaudhari. Care assumed. Pt in no acute distress. 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 Pt has gotten x2 doses of pain meds. Addendum: 07/01/22 at 0647 by Howard Briggs RN Report given to LAMONT Chaudhari at bedside. Questions answered. Pt in no acute distress at time of handoff.
[2022-07-01 06:23] LABS: BASOPHILS % (AUTO) 0.6 % (0-1); EOSINOPHILS # (AUTO) 0.1 X10'3 (0-0.9); EOSINOPHILS % (AUTO) 2.2 % (0-6); HEMATOCRIT 36.8 % (35.0-45.0); HEMOGLOBIN 12.4 g/dl (12.0-16.0); LYMPHOCYTES # (AUTO) 1.2 X10'3 (1.1-4.8); LYMPHOCYTES % (AUTO) 21.3 % (21-51); MEAN CORPUSCULAR HEMOGLOBIN 33.3 PG (27.0-31.0); MEAN CORPUSCULAR HGB CONC 33.7 g/dL (33.0-36.5); MEAN CORPUSCULAR VOLUME 98.8 FL (78-98); MEAN PLATELET VOLUME 7.6 FL (7.4-10.4); MONOCYTES # (AUTO) 0.5 X10'3 (0-0.9); MONOCYTES % (AUTO) 8.6 % (2-12); NEUTROPHILS # (AUTO) 3.7 X10'3 (1.8-7.7); NEUTROPHILS % (AUTO) 67.3 % (42-75); PLATELET COUNT 358 X10'3 (140-440); RED BLOOD COUNT 3.72 X10'6 (4.20-5.60); RED CELL DISTRIBUTION WIDTH 15.3 % (11.5-14.5); WHITE BLOOD COUNT 5.5 X10'3 (4.5-11.0)
[2022-07-01 06:31] LABS: ALBUMIN 3.2 G/DL (3.4-5.0); ANION GAP 10 (8-16); BLOOD UREA NITROGEN 8 MG/DL (7-18); BUN/CREATININE RATIO 11.4 (6.6-38.0); CALCIUM 8.7 MG/DL (8.5-10.1); CHLORIDE 102 MMOL/L (99-107); GLUCOSE 94 MG/DL (70-104); SODIUM 137 MMOL/L (135-145); eGFR 85 ML/MIN
[2022-07-01] MEDS: docusate sod 100mg capsule PO SCH ×2 (08:41→18:38)
[2022-07-01] MEDS: CefTRIAXone/D5W-Rocephin 1gm 50 ML IV SCH (08:41)
[2022-07-01] MEDS: lisinopril 10 MG tablet PO SCH (08:41)
[2022-07-01] MEDS: cholecalciferol (vitamin D3) 1,000 unit (25mcg) tablet PO SCH (08:42)
[2022-07-01] MEDS: aspirin 81mg, enteric-coated 1 TAB TABLET.DR PO SCH (08:42)
[2022-07-01 10:00] VITALS: BP 140/68
[2022-07-01 18:00] VITALS: BP 172/89
[2022-07-01 22:00] VITALS: BP 161/89
[2022-07-02] MEDS: HYDROcodone/acetaminophen 5mg/325mg tablet PO PRN ×3 (00:15→15:53)
[2022-07-02] MEDS: metroNIDAZOLE-Flagyl 500mg/NS 100 ML IV SCH ×3 (01:00→15:52)
[2022-07-02 02:00] VITALS: BP 166/87
[2022-07-02 06:00] VITALS: BP 162/82
--- NOTE | 2022-07-02 06:06 | NUR ---
REVIEWED MARKETING SUPPORT MANAGER ASSESSMENT AND IN AGREEMENT
[2022-07-02 06:31] LABS: ALBUMIN 3.1 G/DL (3.4-5.0); ANION GAP 14 (8-16); BLOOD UREA NITROGEN 8 MG/DL (7-18); BUN/CREATININE RATIO 14.8 (6.6-38.0); CALCIUM 9.1 MG/DL (8.5-10.1); CHLORIDE 102 MMOL/L (99-107); CREATININE 0.54 MG/DL (0.40-0.90); GLUCOSE 91 MG/DL (70-104); SODIUM 136 MMOL/L (135-145); TOTAL CARBON DIOXIDE 19.7 MMOL/L (24-32); eGFR > 90 ML/MIN
[2022-07-02 06:32] LABS: POTASSIUM 4.7 MMOL/L (3.5-5.1)
--- NOTE | 2022-07-02 06:40 | NUR ---
Patient in room PCU 3027. I have received report from LAMONT Keller and had the opportunity to ask questions and assume patient care.
[2022-07-02 08:38] LABS: BASOPHILS % (AUTO) 0.4 % (0-1); EOSINOPHILS # (AUTO) 0.1 X10'3 (0-0.9); HEMATOCRIT 38.4 % (35.0-45.0); LYMPHOCYTES # (AUTO) 1.1 X10'3 (1.1-4.8); LYMPHOCYTES % (AUTO) 19.4 % (21-51); MEAN CORPUSCULAR HEMOGLOBIN 33.4 PG (27.0-31.0); MEAN CORPUSCULAR HGB CONC 33.7 g/dL (33.0-36.5); MEAN PLATELET VOLUME 7.7 FL (7.4-10.4); MONOCYTES # (AUTO) 0.6 X10'3 (0-0.9); MONOCYTES % (AUTO) 10.1 % (2-12); NEUTROPHILS # (AUTO) 3.9 X10'3 (1.8-7.7); NEUTROPHILS % (AUTO) 68.1 % (42-75); PLATELET COUNT 356 X10'3 (140-440); RED BLOOD COUNT 3.88 X10'6 (4.20-5.60); RED CELL DISTRIBUTION WIDTH 15.4 % (11.5-14.5); WHITE BLOOD COUNT 5.7 X10'3 (4.5-11.0)
[2022-07-02] MEDS: cholecalciferol (vitamin D3) 1,000 unit (25mcg) tablet PO SCH (10:46)
[2022-07-02] MEDS: aspirin 81mg, enteric-coated 1 TAB TABLET.DR PO SCH (10:46)
[2022-07-02] MEDS: docusate sod 100mg capsule PO SCH ×2 (10:46→20:00)
[2022-07-02] MEDS: lisinopril 10 MG tablet PO SCH (10:46)
[2022-07-02] MEDS: HYDROcodone/acetaminophen 10/325mg tab PO PRN ×2 (10:50→22:29)
[2022-07-02 11:00] VITALS: BP 160/95
[2022-07-02] MEDS: CefTRIAXone/D5W-Rocephin 1gm 50 ML IV SCH (11:20)
[2022-07-02 15:00] VITALS: BP 164/83
[2022-07-02] MEDS: hydrALAZINE 20mg/ml inj. IV PRN (17:09)
[2022-07-02 18:00] VITALS: BP 180/81
--- NOTE | 2022-07-02 18:50 | NUR ---
Patient in room PCU 3027. I have received report from jean MIGUEL and had the opportunity to ask questions and assume patient care.
--- NOTE | 2022-07-02 19:20 | NUR ---
Problems reprioritized. Patient report given, questions answered & plan of care reviewed with LAMONT Keller.
[2022-07-02] MEDS: diatr meglu/diatrizoate 30ml oral sol.-(3 dose) bottle PO SCH (22:32)
[2022-07-03] MEDS: metroNIDAZOLE-Flagyl 500mg/NS 100 ML IV SCH ×3 (01:22→16:39)
[2022-07-03] MEDS: hydrALAZINE 20mg/ml inj. IV PRN (03:43)
[2022-07-03] MEDS: ondansetron/PF 4mg/2ml inj IV PRN (05:07)
[2022-07-03 06:00] VITALS: BP 134/84
[2022-07-03 06:48] LABS: BASOPHILS % (AUTO) 0.4 % (0-1); EOSINOPHILS # (AUTO) 0.1 X10'3 (0-0.9); EOSINOPHILS % (AUTO) 1.8 % (0-6); HEMATOCRIT 41.4 % (35.0-45.0); HEMOGLOBIN 13.6 g/dl (12.0-16.0); LYMPHOCYTES % (AUTO) 17.3 % (21-51); MEAN CORPUSCULAR HEMOGLOBIN 33.8 PG (27.0-31.0); MEAN CORPUSCULAR HGB CONC 32.9 g/dL (33.0-36.5); MEAN CORPUSCULAR VOLUME 102.8 FL (78-98); MEAN PLATELET VOLUME 7.6 FL (7.4-10.4); MONOCYTES # (AUTO) 0.5 X10'3 (0-0.9); MONOCYTES % (AUTO) 8.4 % (2-12); NEUTROPHILS # (AUTO) 4.1 X10'3 (1.8-7.7); NEUTROPHILS % (AUTO) 72.1 % (42-75); PLATELET COUNT 361 X10'3 (140-440); RED BLOOD COUNT 4.02 X10'6 (4.20-5.60); RED CELL DISTRIBUTION WIDTH 15.9 % (11.5-14.5); WHITE BLOOD COUNT 5.6 X10'3 (4.5-11.0)
[2022-07-03 06:59] LABS: ALBUMIN 3.5 G/DL (3.4-5.0); ANION GAP 20 (8-16); BLOOD UREA NITROGEN 7 MG/DL (7-18); BUN/CREATININE RATIO 10.9 (6.6-38.0); CHLORIDE 103 MMOL/L (99-107); CREATININE 0.64 MG/DL (0.40-0.90); GLUCOSE 105 MG/DL (70-104); POTASSIUM 3.6 MMOL/L (3.5-5.1); SODIUM 137 MMOL/L (135-145); eGFR > 90 ML/MIN
--- NOTE | 2022-07-03 07:00 | NUR ---
Patient in room PCU 3027. I have received report from LAMONT Keller and had the opportunity to ask questions and assume patient care.
[2022-07-03 07:19] LABS: TOTAL CARBON DIOXIDE 13.8 MMOL/L (24-32)
[2022-07-03] MEDS: docusate sod 100mg capsule PO SCH ×2 (07:49→20:00)
[2022-07-03] MEDS: diatr meglu/diatrizoate 30ml oral sol.-(3 dose) bottle PO SCH ×2 (07:54→10:15)
[2022-07-03 09:19] LABS: ABG BASE EXCESS -8.4 mmol/L (-2.0-2.0); ABG OXYGEN SATURATION 96.1 % (94-97); ABG PCO2 (T) 25.9 mmHg (32.0-45.0); ABG PO2 (T) 83.2 mmHg (75.0-100.0); ALLEN'S TEST POSITIVE; FCOHb 0.3 % (0.0-3.9); FMetHb 0.4 % (0.0-1.5); FO2Hb 95.4 % (94-97); PATIENT TEMPERATURE 36.6; TOTAL HEMOGLOBIN 14.6 G/dl (12.0-16.0)
[2022-07-03] MEDS: aspirin 81mg, enteric-coated 1 TAB TABLET.DR PO SCH (09:19)
[2022-07-03] MEDS: cholecalciferol (vitamin D3) 1,000 unit (25mcg) tablet PO SCH (09:19)
[2022-07-03] MEDS: lisinopril 10 MG tablet PO SCH (09:19)
[2022-07-03] MEDS: HYDROcodone/acetaminophen 5mg/325mg tablet PO PRN ×3 (09:29→21:20)
[2022-07-03] MEDS ORDERED: iohexol 350MG/ML 100ml bottle IV ONE (10:14)
--- NOTE | 2022-07-03 10:16 | NUR ---
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 Pt initially on a full liquid diet and overall eating well with average 80% PO intake however made NPO on 07/02. LBM 07/02, receiving routine bowel care. No appropriate nutrition intervention at this time in view of NPO status. Will continue to follow closely. Recommendations: 1) Advance to low fiber diet as medically indicated 2) Bowel care per physician 3) Scaled weight this admit; subsequent weekly scaled weights Addendum: 07/03/22 at [address] Amended: Links added.
[2022-07-03 11:00] VITALS: BP 130/75
[2022-07-03] MEDS: CefTRIAXone/D5W-Rocephin 1gm 50 ML IV SCH (11:31)
[2022-07-03 15:00] VITALS: BP 132/70
[2022-07-03 18:00] VITALS: BP 131/73
--- NOTE | 2022-07-03 18:10 | NUR ---
Problems reprioritized. Patient report given, questions answered & plan of care reviewed with JIMBO Keller.
--- NOTE | 2022-07-03 18:35 | NUR ---
Patient in room PCU 3027. I have received report from Joann MIGUEL and had the opportunity to ask questions and assume patient care.
[2022-07-03 22:00] VITALS: BP 143/83
[2022-07-04 02:00] VITALS: BP 147/75
[2022-07-04] MEDS: metroNIDAZOLE 500mg tablet PO SCH ×3 (02:36→14:34)
[2022-07-04] MEDS: HYDROcodone/acetaminophen 5mg/325mg tablet PO PRN ×2 (02:37→11:21)
[2022-07-04 06:00] VITALS: BP 152/83
--- NOTE | 2022-07-04 06:23 | NUR ---
Problems reprioritized. Patient report given, questions answered & plan of care reviewed with Joann RN.
[2022-07-04 06:33] LABS: ALBUMIN 3.5 G/DL (3.4-5.0); ANION GAP 14 (8-16); BLOOD UREA NITROGEN 10 MG/DL (7-18); BUN/CREATININE RATIO 14.1 (6.6-38.0); CALCIUM 9.2 MG/DL (8.5-10.1); CHLORIDE 103 MMOL/L (99-107); CREATININE 0.71 MG/DL (0.40-0.90); GLUCOSE 103 MG/DL (70-104); POTASSIUM 3.7 MMOL/L (3.5-5.1); SODIUM 136 MMOL/L (135-145); TOTAL CARBON DIOXIDE 19.2 MMOL/L (24-32); eGFR 83 ML/MIN
[2022-07-04 06:38] LABS: BASOPHILS % (AUTO) 0.7 % (0-1); EOSINOPHILS # (AUTO) 0.2 X10'3 (0-0.9); EOSINOPHILS % (AUTO) 3.3 % (0-6); HEMOGLOBIN 13.1 g/dl (12.0-16.0); LYMPHOCYTES # (AUTO) 1.3 X10'3 (1.1-4.8); LYMPHOCYTES % (AUTO) 26.5 % (21-51); MEAN CORPUSCULAR HEMOGLOBIN 34.3 PG (27.0-31.0); MEAN CORPUSCULAR HGB CONC 34.6 g/dL (33.0-36.5); MEAN CORPUSCULAR VOLUME 99.1 FL (78-98); MEAN PLATELET VOLUME 7.7 FL (7.4-10.4); MONOCYTES # (AUTO) 0.5 X10'3 (0-0.9); MONOCYTES % (AUTO) 11.2 % (2-12); NEUTROPHILS # (AUTO) 2.8 X10'3 (1.8-7.7); NEUTROPHILS % (AUTO) 58.3 % (42-75); PLATELET COUNT 371 X10'3 (140-440); RED BLOOD COUNT 3.83 X10'6 (4.20-5.60); RED CELL DISTRIBUTION WIDTH 15.2 % (11.5-14.5); WHITE BLOOD COUNT 4.8 X10'3 (4.5-11.0)
--- NOTE | 2022-07-04 07:00 | NUR ---
Patient in room PCU 3027. I have received report from JIMBO Keller and had the opportunity to ask questions and assume patient care.
[2022-07-04] MEDS ORDERED: CEFD300C3 PO (10:09)
[2022-07-04] MEDS ORDERED: METR-159 PO (10:09)
[2022-07-04 11:00] VITALS: BP 155/88
[2022-07-04] MEDS: CefTRIAXone/D5W-Rocephin 1gm 50 ML IV SCH (11:16)
[2022-07-04] MEDS: docusate sod 100mg capsule PO SCH (11:17)
[2022-07-04] MEDS: aspirin 81mg, enteric-coated 1 TAB TABLET.DR PO SCH (11:17)
[2022-07-04] MEDS: lisinopril 10 MG tablet PO SCH (11:17)
[2022-07-04] MEDS: cholecalciferol (vitamin D3) 1,000 unit (25mcg) tablet PO SCH (11:17)
--- NOTE | 2022-07-04 14:45 | NUR ---
DC inst provided to pt. IV DC'd, tip intact. All belongings sent w/pt. Pt ambulated to vehicle.
[2022-07-04 15:00] VITALS: BP 138/77
[2022-07-06 12:06] LABS: ABG BASE EXCESS -8.4 mmol/L (-2.0-2.0); ABG OXYGEN SATURATION 96.1 % (94-97); ABG PCO2 (T) 25.9 mmHg (32.0-45.0); ABG PO2 (T) 83.2 mmHg (75.0-100.0); ALLEN'S TEST POSITIVE; FCOHb 0.3 % (0.0-3.9); FMetHb 0.4 % (0.0-1.5); FO2Hb 95.4 % (94-97); PATIENT TEMPERATURE 36.6; TOTAL HEMOGLOBIN 14.6 G/dl (12.0-16.0)
== END 2022-07-04 14:40 | disposition home or self-care (01) | DRG 531 ==
LOC: ER 06:58 → ED HOLD 16:15 → PCU 3S 06-30 03:05
PROVIDERS: ADMIT Internal Medicine; ATTEND Internal Medicine
PROC: BW211ZZ Computerized Tomography (CT Scan) of Abdomen and Pelvis using Low Osmolar Contrast (ICD-10-PCS; principal; 2022-07-03)
DX: N73.9 Female pelvic inflammatory disease, unspecified (principal); K57.20 Diverticulitis of large intestine with perforation and abscess without bleeding; F17.210 Nicotine dependence, cigarettes, uncomplicated; I10 Essential (primary) hypertension; I25.10 Atherosclerotic heart disease of native coronary artery without angina pectoris; Z20.822 Contact with and (suspected) exposure to COVID-19; Z79.82 Long term (current) use of aspirin; Z88.1 Allergy status to other antibiotic agents; Z88.0 Allergy status to penicillin; Z79.899 Other long term (current) drug therapy
CPT/HCPCS: 36415; 36600; 74176; 74177; 80048; 80053; 81001; 81025; 82803; 83605; 83690; 85018; 85025; 87040; 87081; 87635; 99285; A4338; C9803; G0378; J0360; J0696; J2270; J2405; J2543; J3490; J7040; Q9963; Q9967

== ENCOUNTER 2022-09-10 09:03 | Day surgery (SDC) | payer MEDICAID ==
[~2022-09-10] VITALS: Ht 170.2 cm; Wt 65.9 kg
[~2022-09-10 09:03] MED LIST changes: +CEFD300C3 PO; +METR-159 PO
[2022-09-10] MEDS ORDERED: MIDAZolam 1 MG/ML 5ML VIAL ONE (09:11)
[2022-09-10 09:15] VITALS: BP 157/111
[2022-09-10] MEDS ORDERED: diphenhydrAMINE 50 mg/ml inj ONE (09:58)
[2022-09-10 10:25] VITALS: BP 145/78
[2022-09-10 10:35] VITALS: BP 156/71
[2022-09-10 10:45] VITALS: BP 165/75
[2022-09-10 10:55] VITALS: BP 157/76
== END 2022-09-10 11:18 | disposition home or self-care (01) ==
LOC: GI LAB 09:03
PROVIDERS: ATTEND Internal Medicine Gastroenterology
DX: K57.32 Diverticulitis of large intestine without perforation or abscess without bleeding (principal); K57.30 Diverticulosis of large intestine without perforation or abscess without bleeding; K64.1 Second degree hemorrhoids; Z79.899 Other long term (current) drug therapy
CPT/HCPCS: 45378; 99152; 99153; J1200; J2250; J7030; Z7512; A4620